=== PATIENT | female | born 2005 | race Two or more races ===

== ENCOUNTER 2025-06-12 05:59 | Emergency (ER) | payer BC ==
[~2025-06-12] VITALS: Ht 165.1 cm; Wt 61.2 kg
[2025-06-12] MEDS ORDERED: ONDANSETRON HCL/PF 4 MG/2 ML VIAL ONE (07:19)
[2025-06-12] MEDS: ONDANSETRON HCL/PF 4 MG/2 ML VIAL IVP ONE (07:31)
[2025-06-12] MEDS: IV NS 0.9% 1,000 ML BAG IV ONE (07:31)
[2025-06-12 07:51] LABS: PLATELET COUNT (AUTO) 307 K/uL (150-450); RED BLOOD CELL COUNT(AUTO) 4.02 MIL/uL (4.0-5.2); RED CELL DISTRIBUTION WIDTH 12.8 % (11.5-15.0); WHITE BLOOD COUNT (AUTO) 5.4 K/uL (4.3-11.0)
[2025-06-12 07:57] LABS: CALCIUM, SERUM 9.1 mg/dL (8.5-10.1); CREATININE 0.7 mg/dL (0.6-1.3); SODIUM SERUM 139.0 mmol/L (136-145); UREA NITROGEN, BLOOD 10.0 mg/dL (7-18)
[2025-06-12 08:03] LABS: ASPARTATE AMINOTRANSFERASE 24.0 U/L (15-37); TOTAL PROTEIN, SERUM 8.7 g/dL (6.4-8.2)
[2025-06-12] MEDS ORDERED: ONDA4TAB5 PO (08:35)
[2025-06-12 08:41] LABS: PREGNANCY TEST URINE QUAL NEGATIVE (NEGATIVE)
[2025-06-12 09:23] VITALS: BP 117/61; TEMP 98.1; O2SAT 99
== END 2025-06-12 09:10 | disposition home or self-care (01) ==
LOC: ER 06:31
DX: F10.10 Alcohol abuse, uncomplicated (principal); R11.10 Vomiting, unspecified
CPT/HCPCS: 99283; 96374; 96361; 85025; 80048; 83690; 80076; 84703; 36415; 80320; J2405; G0480